=== PATIENT | female | born 2000 | race Caucasian/White ===

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

== ENCOUNTER 2021-05-28 16:57 | Inpatient (IN) | payer OTHER ==
[~2021-05-28] VITALS: Ht 160 cm; Wt 80.7 kg
[2021-05-28 18:10] LABS: HEMOGLOBIN 11.4 gm/dl (12.3-15.3); RED BLOOD COUNT 3.94 M/UL (4.00-5.10); WHITE BLOOD COUNT 7.9 K/UL (4.5-11.0)
[2021-05-28] MEDS ORDERED: FEROSUL325 MG PO (18:37)
[2021-05-29] MEDS ORDERED: IBUPROFEN600 MG PO (16:23)
[2021-05-29] MEDS ORDERED: COLACE 100MG C100 MG PO (16:23)
[2021-05-29] MEDS ORDERED: MIRALAX17 GM PO (16:31)
[2021-05-30 05:35] LABS: HEMOGLOBIN 10.7 gm/dl (12.3-15.3)
[2021-05-30] MEDS ORDERED: HYDROCODON-ACE1 EAC4 PO (10:31)
== END 2021-05-31 15:25 | disposition home or self-care (01) | DRG 768 ==
LOC: GENOP 16:57 → OB 17:18
PROVIDERS: Obstetrics & Gynecology; ADMIT Obstetrics & Gynecology
PROC: 4A1HXCZ Monitoring of Products of Conception, Cardiac Rate, External Approach (ICD-10-PCS; 2021-05-28)
PROC: 10907ZC Drainage of Amniotic Fluid, Therapeutic from Products of Conception, Via Natural or Artificial Opening (ICD-10-PCS; principal; 2021-05-29)
PROC: 10E0XZZ Delivery of Products of Conception, External Approach (ICD-10-PCS; 2021-05-29)
PROC: 3E033VJ Introduction of Other Hormone into Peripheral Vein, Percutaneous Approach (ICD-10-PCS; 2021-05-29)
PROC: 0U7C7ZZ Dilation of Cervix, Via Natural or Artificial Opening (ICD-10-PCS; 2021-05-29)
PROC: 0DQR0ZZ Repair Anal Sphincter, Open Approach (ICD-10-PCS; 2021-05-29)
DX: O70.20 Third degree perineal laceration during delivery, unspecified (principal); Z37.0 Single live birth; Z3A.39 39 weeks gestation of pregnancy; Z20.822 Contact with and (suspected) exposure to COVID-19
CPT/HCPCS: 36415; 81001; 82800; 85014; 85018; 85025; 90715; J0595; J2405; J2590; J7120; U0002